=== PATIENT | female | born 1985 | race Caucasian/White ===

== ENCOUNTER 2017-02-21 11:59 | Emergency (ER) | payer MEDICAID ==
[~2017-02-21] VITALS: Ht 160 cm; Wt 96.6 kg
[2017-02-21 12:00] VITALS: BP 107/73
== END 2017-02-21 12:45 | disposition home or self-care (01) ==
LOC: ED 12:39
DX: T78.40XA Allergy, unspecified, initial encounter (principal); Z90.49 Acquired absence of other specified parts of digestive tract
CPT/HCPCS: 99283